=== PATIENT | male | born 1975 | race Caucasian/White ===

== ENCOUNTER 2022-09-03 14:23 | Emergency (ER) | payer BC, SELFPAY ==
[2022-09-03] VITALS (7 sets, daily range): BP systolic 114–162; BP diastolic 69–94; PULSE 68–86; RESP 16–20; TEMP 36.8; O2SAT 95–99; BMI 27.1
--- NOTE | 2022-09-03 14:40 | XR_ITS ---
FINAL REPORT CLINICAL HISTORY: trauma, 8 ft fall off of ladder, pain FINDINGS: RIGHT SHOULDER Two views demonstrate no acute fracture or dislocation. There is mild degenerative change of the acromioclavicular joint. The visualized bony structures are well aligned. No soft tissue abnormality is seen. IMPRESSION: No acute bony abnormality. Reviewed, Interpreted and Dictated by Dandre De Anda III, MD Transcribed by Elli Lynn Authenticated and [facility]
--- NOTE | 2022-09-03 14:40 | CT_ITS ---
FINAL REPORT CLINICAL HISTORY: 8 ft fall off ladder, bruising of right side of face FINDINGS: Axial images of the head were obtained without contrast. Coronal reformatted images were also obtained.This study was performed with techniques to keep radiation doses as low as reasonably achievable (ALARA). Individualized dose reduction techniques using automated exposure control or adjustment of mA and/or kV according to the patient''s size were employed. There is no evidence of intracranial hemorrhage or mass. The ventricular size is within normal limits. There is no evidence of shift of the midline structures. No abnormal extra axial fluid collection is identified. No skull abnormality is seen on the bone window images. Mucosal thickening and fluid in the right maxillary sinus, may represent hemorrhage or sinusitis. IMPRESSION: No acute intracranial abnormality. Hemorrhage or sinusitis in the right maxillary sinus. Reviewed, Interpreted and Dictated by Dandre De Anda III, MD Transcribed by Michelle Cotter Authenticated and [facility]
--- NOTE | 2022-09-03 14:40 | XR_ITS ---
FINAL REPORT CLINICAL HISTORY: trauma, rule out fx FINDINGS: Pelvis Two views were obtained. There is no acute fracture or dislocation. The joint spaces appear normal. No soft tissue abnormality is identified. IMPRESSION: No acute process. Reviewed, Interpreted and Dictated by Dandre De Anda III, MD Transcribed by Michelle Cotter Authenticated and [facility]
--- NOTE | 2022-09-03 14:40 | XR_ITS ---
FINAL REPORT CLINICAL HISTORY: trauma, 8 ft fall off of ladder, pain FINDINGS: Right humerus Two views were obtained. There is no acute fracture or dislocation. The joint spaces appear normal. No soft tissue abnormality is identified. IMPRESSION: No acute process. Reviewed, Interpreted and Dictated by Dandre De Anda III, MD Transcribed by Michelle Cotter Authenticated and [facility]
--- NOTE | 2022-09-03 14:40 | CT_ITS ---
FINAL REPORT CLINICAL HISTORY: trauma, back and R shoulder pain FINDINGS: Thin section axial CT images of the chest were obtained with contrast. 3D reformatted images were also obtained. This study was performed with techniques to keep radiation doses as low as reasonably achievable (ALARA). Individualized dose reduction techniques using automated exposure control or adjustment of mA and/or kV according to the patient''s size were employed. There is no evidence of pulmonary embolism. There is no evidence of thoracic aortic aneurysm or dissection. There is no evidence of mediastinal or hilar mass or adenopathy. There is no evidence of pulmonary mass or nodule. No localized inflammatory process is seen within the lungs. There is mild dependent atelectasis. Limited images of the upper abdomen are unremarkable. IMPRESSION: No evidence of pulmonary embolism. No mass or localized inflammatory process. Reviewed, Interpreted and Dictated by Dandre De Anda III, MD Transcribed by Michelle Cotter Authenticated and [facility]
--- NOTE | 2022-09-03 14:40 | XR_ITS ---
FINAL REPORT CLINICAL HISTORY: fall, distal radius and hand pain FINDINGS: Right hand Three views were obtained. No fracture is seen involving the hand. There is a comminuted fracture of the distal radial metaphysis with lateral and dorsal displacement of the main distal fracture fragment. There is also fracture of the ulnar styloid process. IMPRESSION: Fractures as above. Reviewed, Interpreted and Dictated by Dandre De Anda III, MD Transcribed by Michelle Cotter Authenticated and . [facility]
--- NOTE | 2022-09-03 14:40 | CT_ITS ---
FINAL REPORT TECHNIQUE: Axial images were obtained from skull base to the thoracic inlet by computed tomography. Coronal and sagittal reconstruction process performed. This study was performed with techniques to keep radiation doses as low as reasonably achievable (ALARA). Individualized dose reduction techniques using automated exposure control or adjustment of mA and/or kV according to the patient''s size were employed. CLINICAL HISTORY: fall 8ft LOC FINDINGS: There is no acute fracture or subluxation. No significant spinal or neuroforaminal canal stenosis is seen. There are multilevel degenerative changes with disc osteophyte complexes. The facets are normally aligned. The soft tissues are unremarkable. Limited images of the lung apices are unremarkable. IMPRESSION: No acute fracture. Reviewed, Interpreted and Dictated by Dandre De Anda III, MD Transcribed by Thuy Caro Authenticated and [facility]
--- NOTE | 2022-09-03 14:40 | CT_ITS ---
FINAL REPORT TECHNIQUE: Pre-and postcontrast images of the min L pelvis were performed by computed tomography. Extensive 3-D reconstruction images were performed. A CTA was performed. This study was performed with techniques to keep radiation doses as low as reasonably achievable (ALARA). Individualized dose reduction techniques using automated exposure control or adjustment of mA and/or kV according to the patient''s size were employed. CLINICAL HISTORY: trauma, back and R shoulder pain FINDINGS: ABDOMEN: The lung bases are clear. Precontrast images demonstrate no evidence of nephrolithiasis. No adrenal masses are identified. The liver, spleen and pancreas are unremarkable. CTA: There is no evidence of aortic aneurysm or dissection. The SMA, celiac axis, and RIVER are patent. There is no significant stenosis or calcification. The renal arteries are patent bilaterally. PELVIS: The iliac arteries are patent. There is no evidence of aneurysm or dissection. No mass or free fluid is identified. IMPRESSION: No evidence of renal vascular hypertension or significant renal artery stenosis. Reviewed, Interpreted and Dictated by Dandre De Anda III, MD Transcribed by Michelle Cotter Authenticated and [facility]
--- NOTE | 2022-09-03 14:40 | XR_ITS ---
FINAL REPORT CLINICAL HISTORY: fall, distal radius FINDINGS: Right forearm Two views were obtained. There is a comminuted fracture of the distal radial metaphysis with lateral and dorsal displacement of the main distal fracture fragment. There is also fracture of the ulnar styloid process. IMPRESSION: Fractures as above. Reviewed, Interpreted and Dictated by Dandre De nAda III, MD Transcribed by Michelle Cotter Authenticated and [facility]
--- NOTE | 2022-09-03 14:40 | CT_ITS ---
FINAL REPORT CLINICAL HISTORY: fall, +LOC, FINDINGS: Thin-section axial CT with IV contrast supplemented with multi planar reconstruction under CT angiogram protocol was performed of the head and neck. This study was performed technique to keep radiation doses as low as reasonably achievable, (ALARA). NASCET criteria was utilized during interpretation. CTA head: No aneurysm is seen. Major intracranial vessels are patent without significant stenosis. IMPRESSION: No evidence of significant stenosis, aneurysm or major branch occlusion. Reviewed, Interpreted and Dictated by Dandre De Anda III, MD Transcribed by Thuy Caro Authenticated and [facility]
--- NOTE | 2022-09-03 14:40 | XR_ITS ---
FINAL REPORT CLINICAL HISTORY: trauma, 8 ft fall off of ladder, pain FINDINGS: Right elbow Two views were obtained. There is no acute fracture or dislocation. The joint spaces appear normal. No soft tissue abnormality is identified. IMPRESSION: No acute process. Reviewed, Interpreted and Dictated by Dandre De Anda III, MD Transcribed by Michelle Cotter Authenticated and . [facility]
--- NOTE | 2022-09-03 14:40 | XR_ITS ---
FINAL REPORT CLINICAL HISTORY: fall, R chest and shoulder pain FINDINGS: SINGLE-VIEW CHEST The heart size is normal. The mediastinum is normal. The lungs are clear. There is no pneumothorax. IMPRESSION: No acute cardiopulmonary process. Reviewed, Interpreted and Dictated by Dandre De Anda III, MD Transcribed by Michelle Cotter Authenticated and [facility]
--- NOTE | 2022-09-03 14:42 | PC.NURSE ---
Ice pack applied to left wrist which was placed in POC on a pillow
--- NOTE | 2022-09-03 14:43 | PC.NURSE ---
mary carmen notified of order of pt, trauma protocol
--- NOTE | 2022-09-03 14:45 | CT_ITS ---
FINAL REPORT CLINICAL HISTORY: fall, +LOC, FINDINGS: CTA neck: Aortic arch: Arch shows no significant narrowing. Great vessel origins are widely patent. Right carotid: No significant stenosis is seen at the cervical common or internal carotid artery. Left carotid: No significant stenosis is seen at the cervical common or internal carotid artery. Vertebrals: Left vertebral artery is dominant. No significant stenosis is present. IMPRESSION: No evidence of stenosis or occlusion. Reviewed, Interpreted and Dictated by Dandre De Anda III, MD Transcribed by Thuy Caro Authenticated and [facility]
--- NOTE | 2022-09-03 14:46 | CT_ITS ---
FINAL REPORT CLINICAL HISTORY: 8ft fall, +LOC FINDINGS: Axial imaging of the lumbar spine was obtained without contrast. Sagittal and coronal reformatted images were also obtained and reviewed. This study was performed with techniques to keep radiation doses as low as reasonably achievable (ALARA). Individualized dose reduction techniques using automated exposure control or adjustment of mA and/or kV according to the patient's size were employed. There is no fracture. The vertebral alignment is normal. The disc spaces are preserved. There is no evidence of significant central canal stenosis. IMPRESSION: No acute process Reviewed, Interpreted and Dictated by Dadnre De Anda III, MD Transcribed by Michelle Cotter Authenticated and [facility]
--- NOTE | 2022-09-03 14:46 | CT_ITS ---
FINAL REPORT CLINICAL HISTORY: 8ft fall, +LOC FINDINGS: Axial CT images of the thoracic spine were obtained without contrast. Sagittal and coronal reformatted images were also obtained. This study was performed with techniques to keep radiation doses as low as reasonably achievable (ALARA). Individualized dose reduction techniques using automated exposure control or adjustment of mA and/or kV according to the patient''s size were employed. There is no evidence of fracture. The vertebral alignment is normal. There is no evidence of significant canal stenosis. No paraspinous soft tissue abnormality is identified. IMPRESSION: No fracture or acute bony abnormality. No significant central canal stenosis. Reviewed, Interpreted and Dictated by Dandre De Anda III, MD Transcribed by Michelle Cotter Authenticated and [facility]
[2022-09-03 14:56] LABS: Basophils # 0.2 K/mm3 (0-0.2); Basophils % 1.4 % (0.1-2.0); Eosinophils # 0.3 K/mm3 (0.0-0.4); Eosinophils % 2.8 % (0.1-12.0); Hematocrit 46.3 % (42.0-52.0); Hemoglobin 14.7 g/dL (14.1-18.0); Lymphocytes # 3.7 K/mm3 (0.7-4.5); Lymphocytes % 31.1 % (10-50); Mean Corpuscular HGB Conc 31.8 g/dL (31.8-35.4); Mean Corpuscular Hemoglobin 30.8 pg (27.0-31.2); Mean Corpuscular Volume 97.1 fl (80-94); Monocytes # 0.6 K/mm3 (0.1-1.0); Monocytes % 4.9 % (1.7-9.3); Neutrophils # 7.1 K/mm3 (1.8-7.8); Neutrophils % 59.7 % (37.0-80.0); Platelet Count 342 K/mm3 (142-424); Red Blood Count 4.77 M/mm3 (4.60-6.20); Red Cell Distribution Width 13.2 % (11.5-17.5); White Blood Count 11.8 K/mm3 (4.8-10.8)
[2022-09-03 14:57] LABS: Chloride 99 mmol/L (98-107); Sodium 139 mmol/L (136-145)
[2022-09-03 14:58] LABS: Potassium 3.8 mmoL/L (3.5-5.1)
--- NOTE | 2022-09-03 14:58 | PC.NURSE ---
rad at for portable xrays
--- NOTE | 2022-09-03 14:59 | XR_ITS ---
FINAL REPORT CLINICAL HISTORY: trauma, 8 ft fall off of ladder, pain FINDINGS: Right wrist Two views were obtained. There is a comminuted fracture of the distal radial metaphysis with lateral and dorsal displacement of the main distal fracture fragment. There is also fracture of the ulnar styloid process. IMPRESSION: Fractures as above. Reviewed, Interpreted and Dictated by Dandre De Anda III, MD Transcribed by Michelle Cotter Authenticated and [facility]
--- NOTE | 2022-09-03 14:59 | HMH.EDGENADL ---
Discharge Plan Disposition Patient Disposition: Home, Self-Care Condition: Good Prescriptions Prescriptions: No Action benazepril 10 mg tablet 10 mg PO DAILY Qty: 90 2RF citalopram 40 mg tablet 40 mg PO DAILY Qty: 90 2RF fenofibrate 54 mg tablet 54 mg PO DAILY Qty: 90 2RF levothyroxine [Synthroid] 25 mcg tablet 25 mcg PO DAILY Qty: 90 2RF metoprolol succinate 100 mg tablet extended release 24 hr 100 mg PO DAILY Qty: 90 2RF Referrals Follow up/Referrals: Provider,Tito, [Referring] - See instructions López Villa MD [Physician] - See instructions (Comminuted fracture distal right radius on 09/03 status post reduction and splinting) Activity Restrictions/Add. Instructions Additional Instructions/Restrictions: Follow-up with orthopedics, they will call you to schedule an appointment into your calendar. If you have any other concerning signs or symptoms, return to the ED for further evaluation. Remain not weightbearing on right upper extremity until follow-up. Clinical Impressions Clinical Impression: Closed fracture of right distal radius Discharge ED Provider: Rip Mike General Adult HPI General Chief complaint: Fall Stated complaint: fell 12ft off ladder injured left wrist and right Time Seen by Provider: 09/03/22 14:30 Mode of Arrival: Ambulatory Source of Information: Patient and Relative Limitations: No Limitations Description of Symptoms (Recalled from ER Triage Doc. 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 Deformity noted to R wrist, pulses +, positive sensation. C/O R shoulder pain and shoulder blade area pain. Abrasion noted to R side of forehead and adventist area, abrasion noted to R shoulder. Pt has a laceration to L index finger, states she cut his finger and thinks he reached out too far and that caused him to fall. Pt ambulatory into ER, awake, alert, oriented x3 History of Present Illness HPI narrative: This is a 47-year-old male with history of hypertension on metoprolol who is presenting after fall. Patient states that he was 8 foot high on a ladder when he slipped and fell. He landed on grass, lost consciousness. He does not remember the fall. He remembers is waking up and looking for help. Patient had immediate and severe pain in the right side of his posterior chest, right upper extremity specifically in his forearm and wrist. EMS was called and brought him to the [facility] for further evaluation. On arrival, patient complaining of headache, right shoulder pain, right wrist pain, but denying any other complaints at this time. Related Data Previous Rx's Medication Instructions Recorded benazepril 10 mg tablet 10 mg PO DAILY #90 tabs 08/16/22 citalopram 40 mg tablet 40 mg PO DAILY #90 tabs 08/16/22 fenofibrate 54 mg tablet 54 mg PO DAILY #90 tabs 08/16/22 levothyroxine 25 mcg tablet 25 mcg PO DAILY #90 tabs 08/16/22 (Synthroid) metoprolol succinate 100 mg 100 mg PO DAILY #90 tabs 08/16/22 tablet,extended release 24 hr Allergies Allergy/AdvReac Type Severity Reaction Status Date / Time PCN (PENICILLIN) Allergy Unknown Uncoded 11/01/17 15:36 [facility] Medical History (Updated 09/03/22 @ 17:45 by Rip Mike MD) Anxiety Hypertension Hypothyroid Family History Mother Cancer Father Coronary artery disease Hypertension Grandfather Cancer Social History (Updated 08/16/22 @ 09:59 by Mireya Martinez) Smoking Status: Current every day smoker second hand exposure: Yes alcohol intake: never current occupational status: employed Travel in the last 8 weeks: None household members: spouse housing: house marital status: ROS Obtained: Yes All systems reviewed & no additional complaints except as documented Physical Exam General General appearance: alert and in no apparent distress Head Head exam
[2022-09-03 15:00] LABS: Alanine Aminotransferase 29 U/L (12-78); Albumin Level 4.6 g/dl (3.5-5.0); Albumin/Globulin Ratio 1.6 (1.1-1.8); Alkaline Phosphatase 36 U/L (38-126); Anion Gap 14.8 mEq/L (5-15); Aspartate Amino Transferase 42 U/L (17-59); Bilirubin,Total 0.3 mg/dl (0.2-1.3); Blood Urea Nitrogen 15 mg/dl (9-20); Carbon Dioxide 29 mmol/L (22.0-30.0); Creatinine Clearance Estimated 105 mL/min (50-200); Estimated Glomerular Filt Rate 71 ml/min (>60); GFR (African American) 86 ML/MIN (>60); Globulin 2.8 g/dL (1.3-3.2); Total Protein,Serum 7.4 g/dl (6.3-8.2)
[2022-09-03 15:01] LABS: Calcium 9.3 mg/dl (8.4-10.2); Glucose 176 mg/dl (74-100)
--- NOTE | 2022-09-03 15:18 | PC.NURSE ---
pt to CT via stretcher
--- NOTE | 2022-09-03 15:35 | PC.NURSE ---
Notified MD that pt was still having quite a bit of pain in his wrist even after medication. MD advised he would perform block on pt
--- NOTE | 2022-09-03 16:53 | XR_ITS ---
PROCEDURE INFORMATION: Exam: XR Right Forearm Exam date and time: 09/03/2022 5:14 PM Age: 47 years old Clinical indication: Device placement; Other: Splint placed; Additional info: Post-splint films TECHNIQUE: Imaging protocol: Radiologic exam of the Right forearm. Views: 2 views. COMPARISON: CR XR FOREARM RT 2V 09/03/2022 3:03 PM FINDINGS: Bones/joints: Improved post reduction alignment of the distal radial comminuted metaphyseal fracture with only mild 2-3 mm residual dorsal displacement of the distal fragment. Soft tissues: Soft tissue swelling around the wrist/distal forearm. Other findings: Plaster cast in place. IMPRESSION: Improved post reduction alignment.
--- NOTE | 2022-09-03 17:01 | PC.NURSE ---
rad at for post reduction xrays
--- NOTE | 2022-09-03 17:42 | PC.NURSE ---
pt ambulated to restroom at this time.
== END 2022-09-03 15:00 | disposition home or self-care (01) ==
PROVIDERS: Emergency Provider Emergency Medicine; PCP Family Medicine
DX: S52.351A Displaced comminuted fracture of shaft of radius, right arm, initial encounter for closed fracture (principal); S52.611A Displaced fracture of right ulna styloid process, initial encounter for closed fracture; W11.XXXA Fall on and from ladder, initial encounter; Z23 Encounter for immunization
CPT/HCPCS: 25605; 70450; 70496; 70498; 71045; 71275; 72125; 72128; 72131; 72170; 73030; 73060; 73070; 73090; 73100; 73130; 74174; 80053; 85025; 90471; 90715; 96374; 99285; Q9967

== ENCOUNTER 2022-11-12 09:00 | Outpatient (RCR) | payer BC, SELFPAY | END 2022-12-14 11:50 | disposition home or self-care (01) | LOC: PT 09:00 | PROVIDERS: PCP Family Medicine; Visit Provider Orthopaedic Surgery | DX: S52.501A Unspecified fracture of the lower end of right radius, initial encounter for closed fracture (principal) | CPT/HCPCS: 97010; 97014; 97018; 97110; 97140; 97163; 97164; G0283 ==

== ENCOUNTER 2024-04-16 10:30 | Outpatient (CLI) | payer MEDICAID, SELFPAY ==
[2024-04-16 16:43] LABS: Basophils # 0.1 K/mm3 (0-0.2); Basophils % 0.8 % (0.1-2.0); Eosinophils # 0.5 K/mm3 (0.0-0.4); Hematocrit 50.2 % (42.0-52.0); Hemoglobin 16.1 g/dL (14.1-18.0); Lymphocytes # 3.2 K/mm3 (0.7-4.5); Lymphocytes % 35.3 % (10-50); Mean Corpuscular Hemoglobin 31.7 pg (27.0-31.2); Monocytes # 0.6 K/mm3 (0.1-1.0); Monocytes % 6.7 % (1.7-9.3); Neutrophils # 4.6 K/mm3 (1.8-7.8); Neutrophils % 51.2 % (37.0-80.0); Platelet Count 252 K/mm3 (142-424); Red Blood Count 5.07 M/mm3 (4.60-6.20); Red Cell Distribution Width 13.9 % (11.5-17.5); White Blood Count 9.1 K/mm3 (4.8-10.8)
[2024-04-16 16:50] LABS: Alanine Aminotransferase 39 U/L (12-78); Albumin Level 4.3 g/dl (3.5-5.0); Albumin/Globulin Ratio 1.4 (1.1-1.8); Alkaline Phosphatase 40 U/L (38-126); Anion Gap 11.4 mEq/L (5-15); Aspartate Amino Transferase 42 U/L (17-59); Bilirubin,Total 0.5 mg/dl (0.2-1.3); Blood Urea Nitrogen 15 mg/dl (9-20); Calcium 9.3 mg/dl (8.4-10.2); Carbon Dioxide 29 mmol/L (22.0-30.0); Chloride 103 mmol/L (98-107); Chol/HDL Ratio 4.7 (1-3.5); Cholesterol 193 mg/dl (140-200); Estimated Glomerular Filt Rate 79 ml/min (>60); GFR (African American) 96 ML/MIN (>60); Glucose 97 mg/dl (74-100); HDL Cholesterol 41 mg/dl (40-60); Potassium 4.4 mmoL/L (3.5-5.1); Sodium 139 mmol/L (136-145); Total Protein,Serum 7.3 g/dl (6.3-8.2); Triglycerides 84 mg/dl (30-150); VLDL Cholesterol 17 mg/dL (0-40)
[2024-04-16 17:01] LABS: Direct LDL Cholesterol 120.07 mg/dL (100-129)
[2024-04-16 17:20] LABS: Thyroid Stimulating Hormone 3.23 uIU/mL (0.465-4.68)
[2024-04-16 19:21] LABS: Hemoglobin A1C 5.7 % (4.0-6.0)
== END 2024-04-16 23:59 | disposition home or self-care (01) ==
LOC: LAB.DROPOF 04-18 10:31
PROVIDERS: PCP Family Medicine; Visit Provider Family Medicine
DX: I10 Essential (primary) hypertension (principal); E03.9 Hypothyroidism, unspecified; Z72.0 Tobacco use
CPT/HCPCS: 80053; 80061; 83036; 84443; 85025

== ENCOUNTER 2025-01-21 09:15 | Outpatient (CLI) | payer MEDICAID, SELFPAY ==
[2025-01-21 17:02] LABS: Basophils # 0.1 K/mm3 (0-0.2); Basophils % 0.8 % (0.1-2.0); Eosinophils # 0.6 K/mm3 (0.0-0.4); Eosinophils % 5.5 % (0.1-12.0); Hemoglobin 15.5 g/dL (14.1-18.0); Lymphocytes % 25.3 % (10-50); Mean Corpuscular Hemoglobin 31.1 pg (27.0-31.2); Mean Corpuscular Volume 94.2 fl (80-94); Mean Platelet Volume 10.6 fl (7.4-10.4); Monocytes # 1.2 K/mm3 (0.1-1.0); Monocytes % 9.9 % (1.7-9.3); Neutrophils # 6.8 K/mm3 (1.8-7.8); Neutrophils % 58.1 % (37.0-80.0); Platelet Count 283 K/mm3 (142-424); Red Blood Count 4.99 M/mm3 (4.60-6.20); Red Cell Distribution Width 14.4 % (11.5-17.5); White Blood Count 11.7 K/mm3 (4.8-10.8)
[2025-01-21 17:35] LABS: Albumin Level 4.8 g/dl (3.5-5.0); Chloride 102 mmol/L (98-107); Potassium 4.6 mmoL/L (3.5-5.1); Sodium 139 mmol/L (136-145)
[2025-01-21 17:37] LABS: Alanine Aminotransferase 47 U/L (12-78); Aspartate Amino Transferase 40 U/L (17-59); Blood Urea Nitrogen 16 mg/dl (9-20); Estimated Glomerular Filt Rate 71 ml/min (>60); GFR (African American) 86 ML/MIN (>60)
[2025-01-21 17:38] LABS: Albumin/Globulin Ratio 1.8 (1.1-1.8); Alkaline Phosphatase 37 U/L (38-126); Anion Gap 12.6 mEq/L (5-15); Bilirubin,Total 0.5 mg/dl (0.2-1.3); Calcium 9.7 mg/dl (8.4-10.2); Carbon Dioxide 29 mmol/L (22.0-30.0); Chol/HDL Ratio 5.1 (1-3.5); Cholesterol 224 mg/dl (140-200); Globulin 2.7 g/dL (1.3-3.2); Glucose 73 mg/dl (74-100); HDL Cholesterol 44 mg/dl (40-60); Total Protein,Serum 7.5 g/dl (6.3-8.2); Triglycerides 133 mg/dl (30-150); VLDL Cholesterol 27 mg/dL (0-40)
[2025-01-21 17:49] LABS: Direct LDL Cholesterol 136.31 mg/dL (100-129)
[2025-01-21 18:09] LABS: 25-OH Vitamin D, Total 28.4 ng/mL (30-100); Thyroid Stimulating Hormone 4.48 uIU/mL (0.465-4.68)
[2025-01-21 18:22] LABS: HIV Combo NEGATIVE (Negative)
[2025-01-21 18:28] LABS: Hepatitis C Ab Qual. W/ RFX NEGATIVE (Negative)
[2025-01-22 01:44] LABS: Hemoglobin A1C 5.6 % (4.0-6.0)
== END 2025-01-21 23:59 | disposition home or self-care (01) ==
LOC: LAB.DROPOF 01-22 09:32
PROVIDERS: PCP Nurse Practitioner Family; Visit Provider Nurse Practitioner Family
DX: E03.9 Hypothyroidism, unspecified (principal); E78.5 Hyperlipidemia, unspecified; I10 Essential (primary) hypertension; F41.9 Anxiety disorder, unspecified; Z68.30 Body mass index [BMI] 30.0-30.9, adult
CPT/HCPCS: 80053; 80061; 82306; 83036; 84443; 85025; 86803; 87389